=== PATIENT | female | born 1955 | race Caucasian/White ===

== ENCOUNTER 2021-03-23 10:58 | Emergency (ER) | payer MEDICAID ==
[~2021-03-23] VITALS: Ht 170.2 cm; Wt 80.0 kg
[2021-03-23 11:09] VITALS: BP 129/86
[2021-03-23] MEDS ORDERED: acetaminophen 325mg tablet PO ONE (12:45)
[2021-03-23] MEDS ORDERED: ketorolac trometh inj. 60 MG/2 ML VIAL IM ONE (12:45)
[2021-03-23] MEDS ORDERED: proCHLORperazine 10 MG/2 ml inj IM ONE (12:45)
[2021-03-23] MEDS ORDERED: LORazepam 0.5 MG tablet PO ONE (12:50)
--- NOTE | 2021-03-23 13:00 | NUR ---
pt left the ambulance bay. looked for the pt in the parking lot but can not find her
== END 2021-03-23 14:07 | disposition left against medical advice (07) ==
LOC: ER 10:59
DX: R51.9 Headache, unspecified (principal); Z88.0 Allergy status to penicillin; R11.0 Nausea
CPT/HCPCS: 70450; 99284